=== PATIENT | female | born 1955 | race Caucasian/White ===

== ENCOUNTER 2017-08-24 12:28 | Emergency (ER) | payer OTHER ==
[2017-08-24] MEDS ORDERED: ASPIRIN 325 MG TABLET PO ONE (13:05)
--- NOTE | 2017-08-24 13:05 | ER Document Report ---
ED Medical Screen (RME) - General Chief Complaint: Chest Pain Stated Complaint: CHEST PAIN Time Seen by Provider: 08/24/17 12:47 Mode of Arrival: Ambulatory Information source: Patient Notes: 61-year-old female history of hypertension hypercholesterolemia pulmonary emboli postsurgical when she was 28 presents with complaints of intermittent chest pain over the past few days. Patient attributes this pain to steroid injection in her hip for bursitis I have greeted and performed a rapid initial assessment of this patient. A comprehensive ED assessment and evaluation of the patient, analysis of test results and completion of the medical decision making process will be conducted by additional ED providers. PHYSICAL EXAMINATION: GENERAL: Well-appearing, well-nourished and in no acute distress. HEAD: Atraumatic, normocephalic. EYES: Pupils equal round extraocular movements intact, conjunctiva are normal. ENT: Nares patent NECK: Normal range of motion LUNGS: No respiratory distress Musculoskeletal: Normal range of motion NEUROLOGICAL: Normal speech, normal gait. PSYCH: Normal mood, normal affect. SKIN: Warm, Dry, normal turgor, no rashes or lesions noted. TRAVEL OUTSIDE OF THE [place] IN LAST 30 DAYS: No - Related Data Allergies/Adverse Reactions: promethazine [From Phenergan] Allergy (Verified 08/24/17 12:32) Home Medications: Current Home Medications Diclofenac Sodium [Voltaren] 100 gm TP Q8 08/24/17 [History] Ezetimibe [Zetia 10 mg Tablet] 10 mg PO DAILY 08/24/17 [History] Losartan/Hydrochlorothiazide [Losartan-Hctz 50-12.5 mg Tab] 1 tab PO DAILY 08/24 [History] Phentermine HCl [Adipex-P] 37.5 mg PO DAILY 08/24/17 [History] Past Medical History Renal/ Medical History: Denies: Hx Peritoneal Dialysis Physical Exam - Vital signs Vitals: Temp Pulse Resp BP Pulse Ox 97.4 F 75 24 H 181/88 H 99 08/24/17 12:32 08/24/17 12:32 08/24/17 12:32 08/24/17 12:32 08/24/17 12:32 Course - Vital Signs Vital signs: Temp Pulse Resp BP Pulse Ox 97.4 F 75 24 H 181/88 H 99 08/24/17 12:32 08/24/17 12:32 08/24/17 12:32 08/24/17 12:32 08/24/17 12:32
[2017-08-24 13:32] LABS: ABSOLUTE BASOPHILS # (AUTO) 0.1 10^3/uL (0.0-0.2); ABSOLUTE EOSINOPHILS # (AUTO) 0.3 10^3/uL (0.0-0.6); ABSOLUTE LYMPHOCYTES (AUTO) 3.4 10^3/uL (0.5-4.7); ABSOLUTE MONOCYTES (AUTO) 0.6 10^3/uL (0.1-1.4); ABSOLUTE NEUT (AUTO) 6.2 10^3/uL (1.7-8.2); EOSINOPHILS % (AUTO) 2.7 % (0-6); HEMATOCRIT 41.6 % (36.0-47.0); HEMOGLOBIN 14.2 g/dL (12.0-15.5); LYMPHOCYTES % (AUTO) 32.2 % (13-45); MEAN CORPUSCULAR HEMOGLOBIN 29.9 pg (27.0-33.4); MEAN CORPUSCULAR HGB CONC 34.2 g/dL (32.0-36.0); MEAN CORPUSCULAR VOLUME 87 fl (80-97); MONOCYTES % (AUTO) 5.8 % (3-13); RED BLOOD COUNT 4.76 10^6/uL (3.72-5.28); RED CELL DISTRIBUTION WIDTH 13.8 % (11.5-14.0); SEGMENTED NEUTROPHILS % (AUTO) 58.3 % (42-78); WHITE BLOOD COUNT 10.6 10^3/uL (4.0-10.5)
--- NOTE | 2017-08-24 13:34 | ER Document Report ---
ED Cardiac - General Chief Complaint: Chest Pain Stated Complaint: CHEST PAIN Time Seen by Provider: 08/24/17 12:47 Mode of Arrival: Ambulatory Information source: Patient Notes: 61 yo non smoker, no drugs, no alcohol, non CAD, HX PE 20's after surgery, hyperlipedemic, htn,non dm female c/o retrosternal chest ache on 08-18, lasting most of the day, had started prednisone for inflamed left hip bursisits. Slept OK, still there on the but not as bad, same location, and it was intermittent. Night of the had prop up, but didn't help but lying supine made it worse. On called Dr. Harden. Was better ,23-worse duing night, hard to sleep. uncomfortable all day. 02/01, worst its been. Increased urination today. fHX: GERD, dad-massive HI, CAD. PSH: basil carpal tunnel, basil. knee repair. ROS: No uri sx, no n/v/d, no shortness of breath, No abd pain. No rash. TRAVEL OUTSIDE OF THE [place] IN LAST 30 DAYS: No - Related Data Allergies/Adverse Reactions: promethazine [From Phenergan] Allergy (Verified 08/24/17 12:32) Home Medications: Current Home Medications Diclofenac Sodium [Voltaren] 100 gm TP Q8 08/24/17 [History] Losartan/Hydrochlorothiazide [Losartan-Hctz 50-12.5 mg Tab] 1 tab PO DAILY 08/24 [History] Past Medical History - General Information source: Patient - Social History Smoking Status: Never Smoker Chew tobacco use (# tins/day): No Frequency of alcohol use: None Drug Abuse: None Lives with: Spouse/Significant other Family History: CAD - Past Medical History Cardiac Medical History: Reports: Hx Hypercholesterolemia, Hx Hypertension Renal/ Medical History: Denies: Hx Peritoneal Dialysis Musculoskeltal Medical History: Reports Hx Arthritis Past Surgical History: Reports: Hx Section, Hx Orthopedic Surgery Review of Systems - Review of Systems Constitutional: No symptoms reported EENT: No symptoms reported Cardiovascular: See HPI Respiratory: No symptoms reported Gastrointestinal: No symptoms reported Genitourinary: No symptoms reported Female Genitourinary: No symptoms reported Musculoskeletal: No symptoms reported Skin: No symptoms reported Hematologic/Lymphatic: No symptoms reported Neurological/Psychological: No symptoms reported Physical Exam - Vital signs Vitals: Temp Pulse Resp BP Pulse Ox 97.4 F 75 24 H 181/88 H 99 08/24/17 12:32 08/24/17 12:32 08/24/17 12:32 08/24/17 12:32 08/24/17 12:32 Interpretation: Normal - General General appearance: Appears well, Alert - HEENT Head: Normocephalic, Atraumatic Eyes: Normal Pupils: PERRL - Respiratory Respiratory status: No respiratory distress Chest status: Nontender Breath sounds: Normal Chest palpation: Normal - Cardiovascular Rhythm: Regular Heart sounds: Normal auscultation Murmur: No - Abdominal Inspection: Normal Distension: No distension Bowel sounds: Normal Tenderness: Nontender Organomegaly: No organomegaly - Back Back: Normal, Nontender. No: CVA tenderness - Extremities General upper extremity: Normal inspection, Nontender, Normal color, Normal ROM , Normal temperature General lower extremity: Normal inspection, Nontender, Normal color, Normal ROM , Normal temperature, Normal weight bearing. No: Gelacio's sign - Neurological Neuro grossly intact: Yes Cognition: Normal Orientation: AAOx4 [place] Coma Scale Eye Opening: Spontaneous [place] Coma Scale Verbal: Oriented [place] Coma Scale Motor: Obeys Commands [place] Coma Scale Total: 15 Speech: Normal Motor strength normal: LUE, RUE, LLE, RLE Sensory: Normal - Psychological Associated symptoms: Normal affect, Normal mood - Skin Skin Temperature: Warm Skin Moisture: Dry Skin Color: Normal Skin irregularity: negative: Rash Course - Re-evaluation Re-evalutation: 08/24/17 16:35 Chest x-ray is negative, cardiac enzymes are negative chemistry is normal CBC is normal EKG is normal sinus rhythm with a few PACs. D-dimer is negative. Her history is atypical constant chest pain for 5 days. the patient does not want to wait for the second troponin level she wants to go home and follow up with her doctor. We will also have her follow-up with Dr. Brown supervisor [facility]. I consulted with dr. herman since he saw the pt in [facility] 08/24/17 16:36 - Vital Signs Vital signs: Temp Pulse Resp BP Pulse Ox 97.4 F 75 20 125/58 L 98 08/24/17 12:32 08/24/17 12:32 08/24/17 15:01 08/24/17 15:01 08/24/17 15:01 - Laboratory Result Diagrams: 08/24/17 13:16 08/24/17 13:16 Laboratory results interpreted by me: 08/24/17 08/24/17 13:16 13:16 WBC 10.6 H BUN 21 H Discharge - Discharge Clinical Impression: chest pain Condition: Good Disposition: HOME, SELF-CARE Instructions: Chest Pain of Unclear Cause ([facility]) Additional Instructions: recommend you seeing dr. Brown the supervisor [facility]. Call his office in the [facility] and he will see you. copy of all labs, cxr and ekg given to you return to the ER if persists, gets worse, or any new symptoms take baby aspirin daily Please complete the patient satisfaction survey if you get one, and return it.. If you do not receive a survey, then you can go to the [facility] website, [email or web address] and place your comments about your very good care. Thank you very much. It was a pleasure being your medical provider today. Referrals: CAROLINE GUILLEN MD [Primary Care Provider] - Follow up tomorrow JUSTIN BROWN MD [ACTIVE STAFF] - Follow up tomorrow
[2017-08-24 13:50] LABS: ALANINE AMINOTRANSFERASE 31 U/L (9-52); ALBUMIN 3.5 g/dL (3.5-5.0); ALKALINE PHOSPHATASE 92 U/L (38-126); ANION GAP 11 (5-19); ASPARTATE AMINO TRANSFERASE 19 U/L (14-36); BILIRUBIN,DIRECT 0.3 mg/dL (0.0-0.4); BILIRUBIN,TOTAL 0.4 mg/dL (0.2-1.3); BLOOD UREA NITROGEN 21 mg/dL (7-20); CALCIUM 9.4 mg/dL (8.4-10.2); CARBON DIOXIDE 29 mmol/L (22-30); CHLORIDE 102 mmol/L (98-107); CREATINE KINASE 60 U/L (30-135); CREATININE RESULT 0.67 mg/dL (0.52-1.25); GLUCOSE 100 mg/dL (75-110); SODIUM 141.8 mmol/L (137-145); TOTAL PROTEIN 6.5 g/dL (6.3-8.2)
[2017-08-24 14:01] LABS: CREATINE KINASE MB 1.13 ng/mL (<4.55)
[2017-08-24 14:02] LABS: TROPONIN I < 0.012 ng/mL
--- NOTE | 2017-08-24 14:34 | RADIOLOGY REPORT (SQ) ---
EXAM DESCRIPTION: CHEST PA/LAT COMPLETED DATE/TIME: 08/24/2017 2:18 pm REASON FOR STUDY: chest pain COMPARISON: None. EXAM PARAMETERS: NUMBER OF VIEWS: two views TECHNIQUE: Digital Frontal and Lateral radiographic views of the chest acquired. RADIATION DOSE: NA LIMITATIONS: none FINDINGS: LUNGS AND PLEURA: No opacities, masses or pneumothorax. No pleural effusion. MEDIASTINUM AND HILAR STRUCTURES: No masses or contour abnormalities. HEART AND VASCULAR STRUCTURES: Heart normal size. No evidence for failure. BONES: No acute findings. HARDWARE: None in the chest. OTHER: No other significant finding. IMPRESSION: NO SIGNIFICANT RADIOGRAPHIC FINDING IN THE CHEST. TECHNICAL DOCUMENTATION: JOB ID: [id number] [employer]- All Rights Reserved
[2017-08-24] MEDS ORDERED: OXYCODONE-ACETAMINOPHEN 5-325 MG TABLET PO ONE (16:46)
[2017-08-24] MEDS ORDERED: ONDANSETRON HCL INJ/PF 4 MG/2 ML SDV IV ONE (16:47)
[2017-08-24 17:07] VITALS: BP 101/79
--- NOTE | 2017-08-24 21:01 | EKG REPORT ---
SEVERITY:- ABNORMAL ECG - SINUS RHYTHM MULTIPLE ATRIAL PREMATURE COMPLEXES PROBABLE LEFT ATRIAL ABNORMALITY : Confirmed by: Callie Cortez MD 24-Aug-2017 21:01:05
== END 2017-08-24 17:07 | disposition home or self-care (01) ==
LOC: ER 12:28
DX: R07.9 Chest pain, unspecified (principal); I10 Essential (primary) hypertension; Z79.899 Other long term (current) drug therapy
CPT/HCPCS: 36415; 71020; 80053; 82550; 82553; 84484; 85025; 85379; 93005; 93010; 99285

== ENCOUNTER 2020-06-24 10:15 | Emergency (ER) | payer MEDICARE ==
--- NOTE | 2020-06-24 11:20 | ER Document Report ---
ED Medical Screen (RME) - General Chief Complaint: Knee Pain Stated Complaint: LEFT KNEE PAIN Time Seen by Provider: 06/24/20 11:14 Primary Care Provider: LA PARR MD [Primary Care Provider] - Follow up as needed Mode of Arrival: Wheelchair Information source: Patient Notes: 64-year-old female presented to ED for complaint of pain to the back of her leg for the last 2 days. She states 2 nights ago she rolled over and felt that what was a pop in the back of her leg pain behind her leg and now she has pain from her groin area to her ankle and the posterior part of her leg. She is alert oriented respirations regular nonlabored speaking in full sentences. She does have a history of arthritis asthma high blood pressure cholesterol has had surgeries for arthritis to the knee carpal tunnel and toe and a . She does not smoke drink or use any drugs. I have greeted and performed a rapid initial assessment of this patient. A comprehensive ED assessment and evaluation of the patient, analysis of test results and completion of medical decision making process will be conducted by an additional ED providers. TRAVEL OUTSIDE OF THE [place] IN LAST 30 DAYS: No - Related Data Allergies/Adverse Reactions: promethazine [From Phenergan] Allergy (Verified 06/24/20 11:13) Past Medical History - Past Medical History Cardiac Medical History: Reports: Hx Hypercholesterolemia, Hx Hypertension Renal/ Medical History: Denies: Hx Peritoneal Dialysis Musculoskeltal Medical History: Reports Hx Arthritis Past Surgical History: Reports: Hx Section, Hx Orthopedic Surgery Physical Exam - Vital signs Vitals: Temp Pulse Resp BP Pulse Ox 98.6 F 71 20 146/74 H 98 06/24/20 10:21 06/24/20 10:21 06/24/20 10:21 06/24/20 10:21 06/24/20 10:21 Course - Vital Signs Vital signs: Temp Pulse Resp BP Pulse Ox 98.6 F 71 20 146/74 H 98 06/24/20 10:21 06/24/20 10:21 06/24/20 10:21 06/24/20 10:21 06/24/20 10:21 Doctor's Discharge - Discharge Referrals: LA PARR MD [Primary Care Provider] - Follow up as needed
--- NOTE | 2020-06-24 11:47 | ER Document Report ---
ED Extremity Problem, Lower - General Chief Complaint: Knee Pain Stated Complaint: LEFT KNEE PAIN Time Seen by Provider: 06/24/20 11:14 Primary Care Provider: LA PARR MD [COMMUNITY BASED STAFF] - Follow up as needed Mode of Arrival: Wheelchair Notes: 64-year-old woman presents to the emergency department with a complaint of left posterior knee pain. Apparently on Thursday night she was in bed she rolled over and felt a pop. She then began to notice pain in the posterior aspect of the left knee. She states that it is painful to walk and she does not have her normal ability to walk a distance. She has a history of arthritis. She is intolerant of NSAIDs due to GI related symptoms. TRAVEL OUTSIDE OF THE [place] IN LAST 30 DAYS: No - Related Data Allergies/Adverse Reactions: promethazine [From Phenergan] Allergy (Verified 06/24/20 11:13) NSAIDS (Non-Steroidal Anti-Inflamma Adverse Reaction (Verified 06/24/20 11:20) Yxwwtop-Nqw-Ykv Reductase Inhibitor Adverse Reaction (Verified 06/24/20 11:20) Past Medical History - General Information source: Patient - Social History Smoking Status: Never Smoker Chew tobacco use (# tins/day): No Drug Abuse: None Family History: CAD Patient has homicidal ideation: No - Past Medical History Cardiac Medical History: Reports: Hx Hypercholesterolemia, Hx Hypertension Renal/ Medical History: Denies: Hx Peritoneal Dialysis Musculoskeletal Medical History: Reports Hx Arthritis Past Surgical History: Reports: Hx Section, Hx Orthopedic Surgery Review of Systems - Review of Systems Notes: Constitutional: Negative for fever. HENT: Negative for sore throat. Eyes: Negative for visual changes. Cardiovascular: Negative for chest pain. Respiratory: Negative for shortness of breath. Gastrointestinal: Negative for abdominal pain, vomiting or diarrhea. Genitourinary: Negative for dysuria. Musculoskeletal: + Left knee posterior tenderness Skin: Negative for rash. Neurological: Negative for headaches, weakness or numbness. 10 point ROS negative except as marked above and in HPI. Physical Exam - Vital signs Vitals: Temp Pulse Resp BP Pulse Ox 98.6 F 71 20 146/74 H 98 06/24/20 10:21 06/24/20 10:21 06/24/20 10:21 06/24/20 10:21 06/24/20 10:21 - Notes Notes: PHYSICAL EXAMINATION: Physical Exam: General: Well-nourished well-developed in no acute distress HEENT: NC/AT, pupils equal round and reactive to light, MM moist,nares clear, oropharynx clear, airway patent Neck: supple, no adenopathy, no masses. Good range of motion Lungs: clear, no wheezing, no rales no rhonchi CVS: Regular rate and rhythm no murmur gallop or rub Abdomen: Soft, active, nontender, no masses, no hepatosplenomegaly Ext: Left knee, posterior fullness and mild tenderness, tenderness on the lateral hamstring. Neuro: Alert and responsive, moving all 4 extremities on command, cranial nerves intact, no focal findings Skin: Intact no open lesions, no rash PSYCH: Normal mood, normal affect. Course - Re-evaluation Re-evalutation: 06/24/20 13:27 Doppler ultrasound was performed, no DVT, Peck's cyst noted in the left popliteal fossa. Explained to the patient that she has a Peck's cyst and use of anti-inflammatory medication and cold pack to the area may be helpful. She is also given a referral to the orthopedist for follow-up. - Vital Signs Vital signs: Temp Pulse Resp BP Pulse Ox 98.6 F 71 20 146/74 H 98 06/24/20 10:21 06/24/20 10:21 06/24/20 10:21 06/24/20 10:21 06/24/20 10:21 - Diagnostic Test Radiology reviewed: Image reviewed, Reports reviewed Radiology results interpreted by me: 06/24/20 13:27 Doppler left lower extremity no DVT, + Peck's cyst. Discharge - Discharge Clinical Impression: Synovial cyst of popliteal space [Peck], left knee Left hamstring muscle strain Qualifiers: Encounter type: initial encounter Qualified Code(s): S76.312A - Strain of muscle, fascia and tendon of the posterior muscle group at thigh level, left thigh, initial encounter Condition: Good Disposition: HOME, SELF-CARE Instructions: Peck's Cyst ([facility]) Additional Instructions: You may use the topical diclofenac to the area every 2-4 hours as needed. Using a cold pack to the area may also relieve some of your pain. Please follow-up with your primary care doctor, I am also providing the name of the on-call orthopedist who can also see you for the Peck's cyst. If your symptoms are worsening or if you have other concerns you may return to the emergency department for further evaluation and treatment. HOME CARE INSTRUCTIONS & INFORMATION: Thank you for choosing us for your medical needs. We hope you're satisfied with the care you received. After you leave, you must properly care for your problem and, at the same time, observe its progress. Any condition can change. Some illnesses can change rapidly over hours or days. If your condition worsens, return to the Emergency Department or see your physician promptly. ABOUT YOUR X-RAYS AND EKG'S: If you had an EKG or X-rays taken, they have been read by the Emergency Physician. The X-rays and EKG's will also be read by a Radiologist or [employer] Modeler within 24 hours. If discrepancies are noted, you will be notified by telephone. Please be certain the ED has a correct telephone number & address where you can be reached. Also, realize that some fractures or abnormalities do not show up on initial X-rays. If your symptoms continue, see your physician. ABOUT YOUR LABORATORY TEST: If you had laboratory tests, the results have been reviewed by the Emergency Physician. Some test results (for example cultures) may not be available for several days. You will be contacted if any test result shows you need additional treatment. Please be certain the ED has a correct telephone number and address where you can be reached. ABOUT YOUR MEDICATIONS: You will receive instructions on how to take your medicine on the prescription label you receive. Additional information may be provided by the Pharmacy. If you have questions afterwards, call the ED for clarification or further instructions. Some prescribed medications may cause drowsiness. Do not perform tasks such as driving a car or operating machinery without consulting your Pharmacist. If you feel you need a refill of pain medication, your condition will need re-evaluation. Please do not call for a refill of any medication. ABOUT YOUR SIGNATURE: Signature of this document acknowledges to followin. Understanding that you received emergency treatment and that you may be released before al medical problems are known or treated. Please be certain the ED has a correct phone number & address where you can be reached. 2. Acknowledgement that you will arrange for follow-up care as recommended. 3. Authorization for the Emergency Physician to provide information to your follow-up Physician in order to maximize your care. AT ANY TIME, IF YOUR SYMPTOMS CHANGE SIGNIFICANTLY OR WORSEN OR YOU DEVELOP NEW SYMPTOMS, RETURN TO THE EMERGENCY DEPARTMENT IMMEDIATELY FOR RE-EVALUATION. OUR GOAL IS TO PROVIDE EXCELLENT MEDICAL CARE! WE HOPE THAT WE HAVE MET YOUR EXPECTATIONS DURING YOUR EMERGENCY DEPARTMENT VISIT AND THAT YOU FEEL YOU HAVE RECEIVED EXCELLENT CARE! Referrals: LA PARR MD [COMMUNITY BASED STAFF] - Follow up as needed
--- NOTE | 2020-06-24 11:48 | RADIOLOGY REPORT (SQ) ---
EXAM DESCRIPTION: KNEE LEFT 2 VIEWS IMAGES COMPLETED DATE/TIME: 06/24/2020 11:36 am REASON FOR STUDY: pain COMPARISON: None. NUMBER OF VIEWS: Four views. TECHNIQUE: AP and lateral radiographic images acquired of the left knee. LIMITATIONS: None. FINDINGS: MINERALIZATION: Normal. BONES: No acute fracture or dislocation. No worrisome bone lesions. Moderate meniscal calcification - chondrocalcinosis. Moderate medial compartment joint space narrowing. JOINT: No effusion. Moderate meniscal calcification - chondrocalcinosis.. OTHER: No other significant finding. IMPRESSION: No acute fracture or dislocation. Moderate meniscal calcification - chondrocalcinosis. M oderate medial compartment joint space narrowing. TECHNICAL DOCUMENTATION: JOB ID: [id number] 2010 [employer]- All Rights Reserved Reading location - IP/workstation name: [email or web address]
--- NOTE | 2020-06-24 13:25 | RADIOLOGY REPORT (SQ) ---
EXAM DESCRIPTION: VENOUS UNILATERAL LOWER IMAGES COMPLETED DATE/TIME: 06/24/2020 1:05 pm REASON FOR STUDY: Pain in left leg from top to bottom COMPARISON: None. TECHNIQUE: Dynamic and static viera scale and color images acquired of the left leg venous system. Se lected spectral images acquired with additional compression and augmentation maneuvers. The contralat eral common femoral vein and saphenofemoral junction were also imaged. Images stored on PACS. LIMITATIONS: None. FINDINGS: COMMON FEMORAL: Normal phasicity, compression and augmentation. No visualized echogenic ma terial on viera scale. No defects on color images. FEMORAL: Normal compression and augmentation. No visualized echogenic material on viera scale. No defe cts on color images. POPLITEAL: Normal compression, augmentation. No visualized echogenic material on viera scale. No defec ts on color images. CALF VESSELS: Normal compression, augmentation. No visualized echogenic material on viera scale. No de fects on color images. GSV and SSV: Normal compression, augmentation. No visualized echogenic material on viera scale. No def ects on color images. ANY DEEP VENOUS INSUFFICIENCY: Not evaluated. ANY EVIDENCE OF POPLITEAL CYST: Sizable popliteal cyst measuring over 5 cm. OTHER: No other significant finding. CONTRALATERAL COMMON FEMORAL VEIN AND SAPHENOFEMORAL JUNCTION: Normal phasicity, compression and augmentation. No visualized echogenic material on viera scale. No de fects on color images. IMPRESSION: NO EVIDENCE DVT OR SVT IN THE LEFT LEG. TECHNICAL DOCUMENTATION: JOB ID: [id number] 2010 [employer]- All Rights Reserved Reading location - IP/workstation name: [email or web address]
[2020-06-24 13:50] VITALS: BP 148/86
== END 2020-06-24 13:49 | disposition home or self-care (01) ==
LOC: ER 10:15
DX: M71.22 Synovial cyst of popliteal space [Baker], left knee (principal); S76.312A Strain of muscle, fascia and tendon of the posterior muscle group at thigh level, left thigh, initial encounter; M25.562 Pain in left knee; X58.XXXA Exposure to other specified factors, initial encounter; Z88.8 Allergy status to other drugs, medicaments and biological substances; I10 Essential (primary) hypertension
CPT/HCPCS: 93971; 99283